=== PATIENT | male | born 1995 | race Caucasian/White ===

== ENCOUNTER 2019-02-14 17:36 | Emergency (ER) | payer BC ==
[2019-02-14] MEDS ORDERED: NA CHLORIDE 0.9% 1,000 ML ONE (18:21)
[2019-02-14] MEDS ORDERED: KETOROLAC 30 MG/ML INJ ONE (18:21)
[2019-02-14 18:27] LABS: Absolute Lymphocytes (CBC) 2.1 K/uL (0.7-4.9); Basophils % 1.1 % (0-1.3); Hematocrit 48.2 % (39.6-49.0); Lymphocytes % 20.6 % (15.3-44.8); MPV 8.3 fL (7.6-11.3); RBC Red Blood Cell Count 5.53 M/uL (4.33-5.43)
[2019-02-14 18:43] LABS: ALT/SGPT 62 U/L (12-78); AST/SGOT 29 U/L (15-37); Albumin 4.4 g/dL (3.4-5.0); Alkaline Phosphatase 93 U/L (45-117); BUN Blood Urea Nitrogen 11 mg/dL (7-18); Bicarbonate 29 mmol/L (21-32); Bilirubin Direct 0.2 mg/dL (0-0.2); Glucose Level 82 mg/dL (74-106); Lipase 155 U/L (73-393); Potassium 3.5 mmol/L (3.5-5.1); Protein, Total 7.9 g/dL (6.4-8.2); Sodium Level 141 mmol/L (136-145)
--- NOTE | 2019-02-14 18:47 | RAD REPORT ---
EXAM DESCRIPTION: CT - Stone Protocol - 02/14/2019 6:36 pm CLINICAL HISTORY: Abdominal pain. COMPARISON: 2018 TECHNIQUE: Computed axial tomography of the abdomen pelvis was obtained without oral or IV contrast. Lack of IV and oral contrast limits evaluation of solid organs, bowel, and vessels. Coronal reformat johana images were obtained and reviewed. All CT scans are performed using dose optimization technique as appropriate and may include automated exposure control or mA/KV adjustment according to patient size. FINDINGS: A renal calculus is not seen. An ureteral calculus is not noted. A bladder calculus is not present. The liver, spleen, pancreas and adrenals appear grossly normal There is no evidence of diverticulitis. The appendix appears normal Cholecystectomy A small umbilical hernia IMPRESSION: Negative for a genitourinary calculus
[2019-02-14 19:01] LABS: Urine Blood NEGATIVE (NEG); Urine Glucose NEGATIVE (NEG); Urine Protein NEGATIVE (NEG); Urine Specific Gravity <1.005 (1.005-1.030); Urine pH 5.5 (5.0-7.0)
--- NOTE | 2019-02-14 19:50 | ER ---
Nurse's Notes [facility] Name: Almas Vásquez Age: 23 yrs Sex: Male : 1995 Arrival Date: 02/14/2019 Time: 17:39 Bed 26 Private MD: Diagnosis: Abdominal and pelvic pain Presentation: 02/14 17:47 Presenting complaint: Patient states: i think i have a kidney stone, i have had them tw2 before, this time it started the weekend after thanksgi, then it went down, then this past 3 or 4 days i have felt a lot of pressure and buildup in my back, i am afraid some blockage. i have been nauseous today, not sure about fever. Transition of care: patient was not received from another setting of care. Onset of symptoms was February 14, 2019. Risk Assessment: Do you want to hurt yourself or someone else? Patient reports no desire to harm self or others. Initial Sepsis Screen: Does the patient meet any 2 criteria? No. Patient's initial sepsis screen is negative. Does the patient have a suspected source of infection? No. Patient's initial sepsis screen is negative. Care prior to arrival: None. 17:47 Method Of Arrival: Ambulatory tw2 17:47 Acuity: WENDIE 3 tw2 Triage Assessment: 17:48 General: Appears in no apparent distress. Behavior is calm, cooperative, appropriate tw2 for age. Pain: Complains of pain in right mid back and right low back. GI: Reports. : Reports burning with urination. Musculoskeletal: Range of motion: intact in all extremities. Historical: - Allergies: 17:50 No Known Allergies; tw2 - Home Meds: 17:50 None [Active]; tw2 - PMHx: 17:50 Kidney stones; tw2 - PSHx: 17:50 Lithotripsy; tw2 - Immunization history:: Adult Immunizations. - Social history:: Smoking status: . - Ebola Screening: : Patient denies travel to an Ebola-affected area in the 21 days before illness onset. Screenin:00 Abuse screen: Denies threats or abuse. Nutritional screening: No deficits noted. tr5 Tuberculosis screening: No symptoms or risk factors identified. Fall Risk None identified. Assessment: 19:00 General: Appears uncomfortable, Behavior is calm, cooperative, appropriate for age. tr5 Pain: Complains of pain in back. Neuro: Level of Consciousness is awake, alert, obeys commands. Cardiovascular: Heart tones present Capillary refill < 3 seconds Pulses are all present. Respiratory: Airway is patent Respiratory effort is even, unlabored, Respiratory pattern is regular, symmetrical. GI: No signs and/or symptoms were reported involving the gastrointestinal system. : Reports pain in lower back. EENT: No signs and/or symptoms were reported regarding the EENT system. Derm: No signs and/or symptoms reported regarding the dermatologic system. Musculoskeletal: No signs and/or symptoms reported regarding the musculoskeletal system. Vital Signs: 17:49 BP 161 / 109; Pulse 85; Resp 18; Temp 97.8(TE); Pulse Ox 100% on R/A; Weight 111.13 kg tw2 (R); Height 6 ft. 1 in. (185.42 cm) (R); Pain 5/10; 17:49 Body Mass Index 32.32 (111.13 kg, 185.42 cm) tw2 ED Course: 17:39 Patient arrived in ED. mr 17:47 Chad Arzate FNP-C [facility]. la1 17:47 Sergio Cobian MD is Attending Physician. la1 17:48 Triage completed. tw2 17:48 Arm band placed on. tw2 18:11 Fermin Vernon, RN is Primary Nurse. tr5 18:17 Initial lab(s) drawn, by me, sent to lab. Inserted saline lock: 20 gauge in right lt1 antecubital area, using aseptic technique. 18:38 CT Stone Protocol In Process Unspecified. EDMS 19:00 Bed in low position. Call light in reach. Side rails up X 1. tr5 19:50 Ray Fleming MD is Referral Physician. la1 20:15 No provider procedures requiring assistance completed. Patient did not have IV access tr5 during this emergency room visit. Administered Medications: 18:43 Drug: Ketorolac 15 mg Route: IVP; Site: right antecubital; tr5 19:35 Follow up: Response: Pain is decreased tr5 18:44 Drug: NS 0.9% 1000 ml Route: IV; Rate: 1000 ml; Site: right antecubital; tr5 Outcome: 19:50 Discharge ordered by . la1 20:15 Discharged to home ambulatory. tr5 20:15 Condition: stable 20:15 Discharge instructions given to patient, Instructed on discharge instructions, follow up and referral plans. Demonstrated understanding of instructions, follow-up care. 20:17 Patient left the ED. tr5 Signatures: Dispatcher [employer] EDWAR Ashlyn Santos, Chad, SUPERVISOR CYTOLOGY-C SUPERVISOR CYTOLOGY-Cla1 Leila Coates RN RN tw2 Leighann Whalen [facility] Fermin Vernon RN RN tr5
--- NOTE | 2019-02-14 19:51 | EDPHYS ---
Physician Documentation [facility] Name: Almas Vásquez Age: 23 yrs Sex: Male : 1995 Arrival Date: 02/14/2019 Time: 17:39 Bed 26 Private MD: ED Physician Sergio Cobian HPI: 02/14 19:45 This 23 yrs old Male presents to ER via Ambulatory with complaints of Back la1 Pain, Nausea, Urinary Problem. 19:45 The patient presents with abd pain, flank pain on right side. Onset: The la1 symptoms/episode began/occurred 2 week(s) ago. Modifying factors: The symptoms are alleviated by nothing, the symptoms are aggravated by nothing. Associated signs and symptoms: Pertinent negatives: dysuria, fever, hematuria, nausea, vomiting. Severity of symptoms: At their worst the symptoms were moderate, in the emergency department the symptoms have improved. The patient has experienced similar episodes in the past. Pt reports hx of multiple kidney stones, states he feels like he has one again, feels pressure and pain in the right flank area, denies fever or chills. Historical: - Allergies: 17:50 No Known Allergies; tw2 - Home Meds: 17:50 None [Active]; tw2 - PMHx: 17:50 Kidney stones; tw2 - PSHx: 17:50 Lithotripsy; tw2 - Immunization history:: Adult Immunizations. - Social history:: Smoking status: . - Ebola Screening: : Patient denies travel to an Ebola-affected area in the 21 days before illness onset. ROS: 19:46 Constitutional: Negative for fever, chills, and weight loss, Eyes: Negative for injury, la1 pain, redness, and discharge, ENT: Negative for injury, pain, and discharge, Neck: Negative for injury, pain, and swelling, Cardiovascular: Negative for chest pain, palpitations, and edema, Respiratory: Negative for shortness of breath, cough, wheezing, and pleuritic chest pain, Abdomen/GI: + for right abd.flank pain Back: Negative for injury and pain, : Negative for injury, bleeding, discharge, and swelling, MS/Extremity: Negative for injury and deformity. Exam: 19:47 Constitutional: This is a well developed, well nourished patient who is awake, alert, la1 and in no acute distress. Head/Face: Normocephalic, atraumatic. Eyes: Pupils equal round and reactive to light, extra-ocular motions intact. Periorbital areas with no swelling, redness, or edema. Neck: No Meningismus. Chest/axilla: Normal chest wall appearance and motion. Nontender with no deformity. No lesions are appreciated. Cardiovascular: Regular rate and rhythm with a normal S1 and S2. No gallops, murmurs, or rubs. Normal PMI, no JVD. No pulse deficits. Respiratory: Lungs have equal breath sounds bilaterally, clear to auscultation No rales, rhonchi or wheezes noted. No increased work of breathing, no retractions or nasal flaring. 19:47 Abdomen/GI: Inspection: abdomen appears normal, Bowel sounds: normal, in all quadrants, Palpation: abdomen is soft and non-tender, in all quadrants, Indicators: McBurney's point is not tender, Craig's sign is negative, Rovsing's sign is negative, Obturator sign is negative, Psoas sign is negative. 19:47 Back: pain, that is mild, ROM is normal, CVA tenderness, is absent. Vital Signs: 17:49 BP 161 / 109; Pulse 85; Resp 18; Temp 97.8(TE); Pulse Ox 100% on R/A; Weight 111.13 kg tw2 (R); Height 6 ft. 1 in. (185.42 cm) (R); Pain 5/10; 17:49 Body Mass Index 32.32 (111.13 kg, 185.42 cm) tw2 MDM: 17:55 Patient medically screened. la1 19:48 Data reviewed: vital signs, nurses notes, lab test result(s), radiologic studies, I la1 have discussed the patient's presentation/case with the attending Emergency Department Physician; and as a result, I will discharge patient. Data interpreted: Pulse oximetry: on room air is 100 %. Interpretation: normal. Counseling: I had a detailed discussion with the patient and/or guardian regarding: the historical points, exam findings, and any diagnostic results supporting the discharge/admit diagnosis, the presence of at least one elevated blood pressure reading (>120/80) during this emergency department visit, lab results, radiology results, the need for outpatient follow up, a family practitioner, a urologist, to return to the emergency department if symptoms worsen or persist or if there are any questions or concerns that arise at home. ED course: Pt tolerating PO, pain improved with toradol, no fevers, able to urinate without difficulty. 02/14 18:05 Order name: Basic Metabolic Panel; Complete Time: 19:11 la1 02/14 18:05 Order name: CBC with Diff; Complete Time: 19:11 la1 02/14 18:05 Order name: Creatinine for Radiology; Complete Time: 19:11 la1 02/14 18:05 Order name: Hepatic Function; Complete Time: 19:11 la1 02/14 18:05 Order name: Lipase; Complete Time: 19:11 la1 02/14 18:40 Order name: Urine Dipstick--Ancillary (enter results); Complete Time: 19:11 ar5 02/14 18:05 Order name: IV Saline Lock; Complete Time: 18:18 la1 02/14 18:05 Order name: Labs collected and sent; Complete Time: 18:18 la1 02/14 18:05 Order name: CT Stone Protocol; Complete Time: 19:11 la1 Administered Medications: 18:43 Drug: Ketorolac 15 mg Route: IVP; Site: right antecubital; tr5 19:35 Follow up: Response: Pain is decreased tr5 18:44 Drug: NS 0.9% 1000 ml Route: IV; Rate: 1000 ml; Site: right antecubital; tr5 Disposition: 02/15 06:42 Co-signature as Attending Physician, Sergio Cobian MD I agree with the assessment and kdr plan of care. Disposition: 02/14/19 19:50 Discharged to Home. Impression: Abdominal and pelvic pain. - Condition is Stable. - Discharge Instructions: Kidney Stones, Kidney Stones, [id number], Abdominal Pain, Adult, [id number], Dietary Guidelines to Help Prevent Kidney Stones. - Medication Reconciliation Form, Thank You Letter form. - Follow up: Private Physician; When: 2 - 3 days; Reason: Recheck today's complaints, Re-evaluation by your physician. Follow up: Ray Fleming MD; When: As needed. - Problem is new. - Symptoms have improved. Signatures: Dispatcher [employer] EDCA Sergio Cobian MD MD kdr Attema, Lee, PATTERN LAYOUT WORKER-C PATTERN LAYOUT WORKER-Cla1 Leila Coates RN RN tw2 Fermin Vernon, RN RN tr5 Corrections: (The following items were deleted from the chart) 02/14 20:17 19:50 02/14/2019 19:50 Discharged to Home. Impression: Abdominal and pelvic pain. tr5 Condition is Stable. Forms are Medication Reconciliation Form, Thank You Letter, Antibiotic Education, Prescription Opioid Use. Follow up: Private Physician; When: 2 - 3 days; Reason: Recheck today's complaints, Re-evaluation by your physician. Follow up: Ray Fleming; When: As needed. Problem is new. Symptoms have improved. la1
[2019-02-14 20:23] VITALS: BP 161/109; TEMP 97.8; O2SAT 100
== END 2019-02-14 20:17 | disposition home or self-care (01) ==
LOC: ER 17:36
DX: R10.9 Unspecified abdominal pain (principal); R10.2 Pelvic and perineal pain
CPT/HCPCS: 85025; 80048; 36415; 80076; 81003; 83690; 76377; 74176; 96374; 99284; J7030

== ENCOUNTER 2019-07-03 17:10 | Emergency (ER) | payer BC, OTHER ==
[2019-07-03] MEDS ORDERED: ACETAMINOPHEN 500 MG TAB ONE (17:34)
[2019-07-03] MEDS ORDERED: PROMETHAZINE INJ 25 MG/ML AMP ONE (17:34)
--- NOTE | 2019-07-03 18:31 | ER ---
Nurse's Notes [facility] Name: Almas Vásquez Age: 24 yrs Sex: Male : 1995 Arrival Date: 07/03/2019 Time: 17:11 Bed 13 Private MD: Presley Masters B Diagnosis: Fever, unspecified;Shortness of breath Presentation: 07/02 17:19 Chief complaint: headache x 5 days, nausea and cough x 2 days, worsening SOB since last hb night. Coronavirus screen: Proceed with normal triage. Patient reports a cough. Patient reports shortness of breath or difficulty breathing. Patient reports a measured and/or subjective temperature greater than 100.4F. Patient denies travel on a cruise ship or to a country the [facility] currently lists as an affected area. Patient denies contact with known and/or suspected case of COVID-19. Ebola Screen: No symptoms or risks identified at this time. Initial Sepsis Screen: Does the patient meet any 2 criteria? HR > 90 bpm. No. Patient's initial sepsis screen is negative. Does the patient have a suspected source of infection? No. Patient's initial sepsis screen is negative. Risk Assessment: Do you want to hurt yourself or someone else? Patient reports no desire to harm self or others. Onset of symptoms was June 28, 2019. 17:19 Method Of Arrival: Ambulatory 17:19 Acuity: WENDIE 3 hb Triage Assessment: 18:01 General: Appears in no apparent distress. uncomfortable, Behavior is calm, cooperative, vc appropriate for age. Respiratory: Reports shortness of breath at rest cough that is dry, Onset: The symptoms/episode began/occurred yesterday, the patient has moderate shortness of breath. Historical: - Allergies: 17:21 No Known Allergies; hb - Home Meds: 17:21 None [Active]; hb - PMHx: 17:21 Kidney stones; hb - PSHx: 17:21 Lithotripsy; Cholecystectomy; hb - Immunization history:: Adult Immunizations up to date. - Social history:: Smoking status: Patient reports the use of cigarette tobacco products, denies chronic smoking, but will smoke occasionally. Screenin:59 Abuse screen: Denies threats or abuse. Nutritional screening: No deficits noted. vc Tuberculosis screening: No symptoms or risk factors identified. Fall Risk None identified. Assessment: 17:59 Pain:. Cardiovascular: Rhythm is regular. Respiratory: Airway is patent Respiratory vc effort is even, labored, Respiratory pattern is symmetrical, Breath sounds are clear bilaterally. 18:00 General: Appears in no apparent distress. uncomfortable, Behavior is calm, cooperative, vc appropriate for age. Neuro: Level of Consciousness is awake, alert, obeys commands, Oriented to person, place, time, situation. GI: No signs and/or symptoms were reported involving the gastrointestinal system. GI: Reports nausea. : No signs and/or symptoms were reported regarding the genitourinary system. Derm: No signs and/or symptoms reported regarding the dermatologic system. Musculoskeletal: No signs and/or symptoms reported regarding the musculoskeletal system. 07/03 13:15 Reassessment: Spoke with Carlota at [facility], issued PUI# [id number], outside lab notified.hb Vital Signs: 07/02 17:19 BP 148 / 86; Pulse 105; Resp 20; Temp 100.4; Pulse Ox 100% on R/A; Weight 142.88 kg; hb Height 6 ft. 3 in. (190.50 cm); Pain 4/10; 18:30 BP 134 / 79; Pulse 83; Resp 20; Pulse Ox 98% on R/A; vc 18:49 Temp 99.7(O); vc 17:19 Body Mass Index 39.37 (142.88 kg, 190.50 cm) hb ED Course: 17:11 Patient arrived in ED. am2 17:11 Presley Masters MD is Private Physician. am2 17:16 Ligia Dyson FNP-C is [facility]. snw 17:16 Sergio Cobian MD is Attending Physician. snw 17:17 Ericka Man, CLARIBEL is Primary Nurse. vc 17:20 Patient maintains SpO2 saturation greater than 95% on room air. jp3 17:21 Triage completed. hb 17:21 Arm band placed on. hb 17:21 Safety checks: Items removed: Other: Patient placed on Droplet precaution Door jp3 open/sign placed on door: Other: Droplet precaution placed on Door. Bed in low position. Call light in reach. Verbal reassurance given. Pulse ox on. NIBP on. 17:40 Flu and/or RSV swab sent to lab. Strep swab sent to lab. COVID-19 Swab obtained. jp3 18:01 Chest Single View XRAY In Process Unspecified. EDMS 18:04 Patient has correct armband on for positive identification. Bed in low position. Call vc light in reach. Side rails up X 1. Pulse ox on. NIBP on. 18:40 No provider procedures requiring assistance completed. Patient did not have IV access vc during this emergency room visit. Administered Medications: 17:48 Drug: Phenergan 25 mg Route: IM; Site: right deltoid; vc 17:49 Drug: Tylenol 1000 mg Route: PO; vc Outcome: 18:31 Discharge ordered by . nery 18:50 Patient left the ED. vc 19:10 Discharged to home ambulatory. vc 19:10 Condition: good 19:10 Discharge instructions given to patient, Instructed on discharge instructions, follow up and referral plans. medication usage, Self quarantine self until receiving results for COVID-19 test. Demonstrated understanding of instructions, follow-up care, medications, Prescriptions given X 1. Signatures: Dispatcher [employer] EDDC Ligia Dyson, ALUM PLANT OPERATOR-C ALUM PLANT OPERATOR-Csnw Carlota De La Garza, RN RN Melita Chappell am2 Demarcus Healy jp3 Ericka Man RN RN vc
--- NOTE | 2019-07-03 18:32 | EDPHYS ---
Physician Documentation [facility] Name: Almas Vásquez Age: 24 yrs Sex: Male : 1995 Arrival Date: 07/03/2019 Time: 17:11 Bed 13 Private MD: Presley Masters B ED Physician Sergio Cobian HPI: 07/02 17:27 This 24 yrs old Male presents to ER via Ambulatory with complaints of snw Shortness Of Breath. 17:27 The patient has shortness of breath at rest. Onset: The symptoms/episode began/occurred snw gradually, 5 day(s) ago. Duration: The symptoms are continuous. Associated signs and symptoms: The patient has no apparent associated signs or symptoms. Severity of symptoms: in the emergency department the symptoms are unchanged. The patient has not experienced similar symptoms in the past. The patient has not recently seen a physician. pt states he has been nauseated with a headache, had chills last pm. Pt states his headache has improved but is increasingly short of breath. Historical: - Allergies: 17:21 No Known Allergies; hb - Home Meds: 17:21 None [Active]; hb - PMHx: 17:21 Kidney stones; hb - PSHx: 17:21 Lithotripsy; Cholecystectomy; hb - Immunization history:: Adult Immunizations up to date. - Social history:: Smoking status: Patient reports the use of cigarette tobacco products, denies chronic smoking, but will smoke occasionally. ROS: 17:26 Constitutional: Negative for fever, chills, and weight loss. snw 17:26 Eyes: Negative for injury, pain, redness, and discharge, ENT: Negative for injury, pain, and discharge, Neck: Negative for injury, pain, and swelling, Cardiovascular: Negative for chest pain, palpitations, and edema. 17:26 Abdomen/GI: Negative for abdominal pain, vomiting, diarrhea, and constipation, + nausea Back: Negative for injury and pain, : Negative for injury, bleeding, discharge, and swelling, MS/Extremity: Negative for injury and deformity, Skin: Negative for injury, rash, and discoloration. 17:26 Constitutional: Positive for body aches, chills, fever, malaise. 17:26 Respiratory: Positive for shortness of breath, at rest. 17:26 Neuro: Positive for headache. Exam: 17:24 Head/Face: Normocephalic, atraumatic. Eyes: Pupils equal round and reactive to light, snw extra-ocular motions intact. Lids and lashes normal. Conjunctiva and sclera are non-icteric and not injected. Cornea within normal limits. Periorbital areas with no swelling, redness, or edema. ENT: Nares patent. No nasal discharge, no septal abnormalities noted. Tympanic membranes are normal and external auditory canals are clear. Oropharynx with no redness, swelling, or masses, exudates, or evidence of obstruction, uvula midline. Mucous membranes moist. Neck: Trachea midline, no thyromegaly or masses palpated, and no cervical lymphadenopathy. Supple, full range of motion without nuchal rigidity, or vertebral point tenderness. No Meningismus. Chest/axilla: Normal chest wall appearance and motion. Nontender with no deformity. No lesions are appreciated. 17:24 Abdomen/GI: Soft, non-tender, with normal bowel sounds. No distension or tympany. No guarding or rebound. No evidence of tenderness throughout. Back: No spinal tenderness. No costovertebral tenderness. Full range of motion. 17:24 MS/ Extremity: Pulses equal, no cyanosis. Neurovascular intact. Full, normal range of motion. Neuro: Awake and alert, GCS 15, oriented to person, place, time, and situation. Cranial nerves II-XII grossly intact. Motor strength 5/5 in all extremities. Sensory grossly intact. Cerebellar exam normal. Normal gait. Psych: Awake, alert, with orientation to person, place and time. Behavior, mood, and affect are within normal limits. 17:24 Constitutional: The patient appears alert, awake, anxious, diaphoretic, uncomfortable. 17:24 Cardiovascular: Rate: tachycardic, Rhythm: regular, Pulses: no pulse deficits are appreciated, Heart sounds: normal. 17:24 Respiratory: the patient does not display signs of respiratory distress, Respirations: shallow respirations, tachypnea, Breath sounds: are clear throughout. 17:24 Skin: Appearance: Color: normal in color, diaphoresis is noted. Vital Signs: 17:19 BP 148 / 86; Pulse 105; Resp 20; Temp 100.4; Pulse Ox 100% on R/A; Weight 142.88 kg; hb Height 6 ft. 3 in. (190.50 cm); Pain 4/10; 18:30 BP 134 / 79; Pulse 83; Resp 20; Pulse Ox 98% on R/A; vc 18:49 Temp 99.7(O); vc 17:19 Body Mass Index 39.37 (142.88 kg, 190.50 cm) hb MDM: 17:16 Patient medically screened. snw 18:34 Data reviewed: vital signs, nurses notes, lab test result(s), radiologic studies. Data snw interpreted: Pulse oximetry: on room air is 100 %. Interpretation: normal. Counseling: I had a detailed discussion with the patient and/or guardian regarding: the historical points, exam findings, and any diagnostic results supporting the discharge/admit diagnosis, lab results, radiology results, the need for outpatient follow up, for definitive care, to return to the emergency department if symptoms worsen or persist or if there are any questions or concerns that arise at home. 07/02 17:19 Order name: COVID-19 snw 07/02 17:19 Order name: Flu; Complete Time: 18:29 snw 07/02 17:19 Order name: Strep; Complete Time: 18:29 snw 07/02 17:24 Order name: Chest Single View XRAY snw 07/02 18:27 Order name: Throat Culture EDMS 07/02 17:19 Order name: Droplet/Contact Precautions; Complete Time: 17:25 snw 07/02 17:19 Order name: Labs collected and sent; Complete Time: 17:49 snw 07/02 17:19 Order name: O2 Per Protocol; Complete Time: 17:50 snw Administered Medications: 17:48 Drug: Phenergan 25 mg Route: IM; Site: right deltoid; vc 17:49 Drug: Tylenol 1000 mg Route: PO; vc Disposition: 07/03/19 18:31 Discharged to Home. Impression: Fever, unspecified, Shortness of breath. - Condition is Stable. - Discharge Instructions: Shortness of Breath, [id number], Fever, Adult, Oggi-my-Cmgb, Rehydration, Adult. - Prescriptions for promethazine 25 mg Oral Tablet - take 1 tablet by ORAL route every 6 hours As needed; 20 tablet. - Work release form, Medication Reconciliation Form, Thank You Letter, Antibiotic Education, Prescription Opioid Use form. - Follow up: Private Physician; When: 1 week; Reason: Recheck today's complaints, Continuance of care, Re-evaluation by your physician. Follow up: Emergency Department; When: As needed; Reason: Worsening of condition. - Problem is new. - Symptoms are unchanged. - Notes: Please self quarantine until results of CoVid 19 test results. Rest, avoid Motrin. Please return to ER immediately for worsening symptoms. Addendum: 07/05/2019 11:35 Co-signature as Attending Physician, Sergio Cobian MD I agree with the assessment and k dr plan of care. Signatures: Dispatcher [employer] EDOK Sergio Cobian MD MD [facility] Ligia Dyson, MICROBIOLOGY LAB MANAGER-C MICROBIOLOGY LAB MANAGER-Csnw Carlota De La Garza RN RN hb Ericka Man RN RN vc Corrections: (The following items were deleted from the chart) 07/02 18:50 18:31 07/03/2019 18:31 Discharged to Home. Impression: Fever, unspecified; Shortness of vc breath. Condition is Stable. Forms are Medication Reconciliation Form, Thank You Letter, Antibiotic Education, Prescription Opioid Use. Follow up: Private Physician; When: 1 week; Reason: Recheck today's complaints, Continuance of care, Re-evaluation by your physician. Follow up: Emergency Department; When: As needed; Reason: Worsening of condition. Problem is new. Symptoms are unchanged. snw
--- NOTE | 2019-07-03 18:50 | RAD REPORT ---
EXAM DESCRIPTION: RAD - Chest Single View - 07/03/2019 6:01 pm CLINICAL HISTORY: SOB COMPARISON: None available TECHNIQUE: AP portable chest image was obtained 07/03/2019 6:01 pm . FINDINGS: Lungs are clear. Heart and vasculature are normal. No measurable pleural effusion and no p neumothorax. No acute bony abnormality seen. No acute aortic findings suspected. IMPRESSION: No acute cardiopulmonary process.
[2019-07-03 18:59] VITALS: BP 134/79; TEMP 100.4; O2SAT 98
== END 2019-07-03 18:50 | disposition home or self-care (01) ==
LOC: ER 17:10
DX: R06.02 Shortness of breath (principal); R50.9 Fever, unspecified; F17.210 Nicotine dependence, cigarettes, uncomplicated
CPT/HCPCS: 87070; 87081; 87804 ×2; 71045; 96372; 99284; U0001; J2550

== ENCOUNTER 2019-07-04 15:38 | Inpatient (IN) | payer BC, OTHER ==
[2019-07-04] MEDS ORDERED: NA CHLORIDE 0.9% 1,000 ML ONE ×2 (17:02→20:22)
[2019-07-04] MEDS ORDERED: KETOROLAC 30 MG/ML INJ ONE (17:02)
[2019-07-04 18:17] LABS: Albumin 3.7 g/dL (3.4-5.0); Bilirubin Direct 0.6 mg/dL (0-0.2); Bilirubin Total 2.1 mg/dL (0.2-1.0); Potassium 3.5 mmol/L (3.5-5.1)
[2019-07-04 18:49] LABS: Absolute Lymphocytes (CBC) 0.7 K/uL (0.7-4.9); Basophils % 0.2 % (0-1.3); Lymphocytes % 3.8 % (15.3-44.8); MPV 8.4 fL (7.6-11.3); RBC Red Blood Cell Count 4.77 M/uL (4.33-5.43)
--- NOTE | 2019-07-04 19:32 | RAD REPORT ---
EXAM DESCRIPTION: CT - Stone Protocol - 07/04/2019 7:24 pm CLINICAL HISTORY: Flank pain. ABD PAIN COMPARISON: Stone Protocol dated 02/14/2019; Chest Single View dated 07/03/2019 TECHNIQUE: Axial images were obtained without oral or IV contrast. Lack of contrast limits solid org an and vascular assessment. The [id number] spans the entirety of the system partially obscuring uppermost abdomen and lung bases. Coronal reformatted images were obtained and reviewed. All CT scans are performed using dose optimization technique as appropriate and may include automated exposure control or mA/KV adjustment according to patient size. FINDINGS: Subtle nonspecific ground-glass opacity noted in both lung bases. Imaged portions of the liver and spleen show no suspicious findings on non-contrast imaging. The panc reas and adrenal glands are normal. No pathologic lymphadenopathy in the abdomen or pelvis. No urinary tract stones or obstructive uropathy. No bowel obstruction, free air, free fluid or abscess. Normal appendix noted. No significant bony abnormality. IMPRESSION: No urinary tract stones or obstructive uropathy.
[2019-07-04] MEDS ORDERED: NA CHLORIDE 0.9% 250 ML ONE (20:22)
[2019-07-04] MEDS ORDERED: AZITHROMYCIN 500 MG INJ IVPB ONE (20:22)
[2019-07-04] MEDS ORDERED: PROMETHAZINE INJ 25 MG/ML AMP ONE (20:51)
[2019-07-04] MEDS ORDERED: MORPHINE 4 MG/ML SYR ONE (20:52)
[2019-07-04] MEDS ORDERED: ACETAMINOPHEN 500 MG TAB ONE (20:53)
--- NOTE | 2019-07-04 21:17 | ER ---
Nurse's Notes [facility] Name: Almas Vásquez Age: 24 yrs Sex: Male : 1995 Arrival Date: 07/04/2019 Time: 15:42 Bed 13 Private MD: Diagnosis: Pneumonia, unspecified organism;Dyspnea, unspecified Presentation: 07/03 15:57 Chief complaint: Patient states: Awaiting covid result from yesterdays visit. States ll1 the chest pain and SOB has worsened overnight. Coronavirus screen: Surgical mask placed on patient. Patient moved to private room, placed in contact and droplet isolation with eye protection until further assessment. Patient reports a cough. Patient reports shortness of breath or difficulty breathing. Patient reports a measured and/or subjective temperature greater than 100.4F. Patient denies travel on a cruise ship or to a country the [facility] [place] currently lists as an affected area. Patient denies contact with known and/or suspected case of COVID-19. covid test result pending. Ebola Screen: Patient denies travel to an Ebola-affected area in the 21 days before illness onset. Initial Sepsis Screen: Does the patient meet any 2 criteria? HR > 90 bpm. Does the patient have a suspected source of infection? No. Patient's initial sepsis screen is negative. Risk Assessment: Do you want to hurt yourself or someone else? Patient reports no desire to harm self or others. Onset of symptoms is unknown. 15:57 Method Of Arrival: Ambulatory ll1 15:57 Acuity: WENDIE 3 ll1 Triage Assessment: 17:30 General: Appears in no apparent distress. uncomfortable, ill, obese, Behavior is vc cooperative, anxious. Pain: Complains of pain in chest. GI: Reports nausea. Historical: - Allergies: 15:59 No Known Allergies; ll1 - PMHx: 15:59 Kidney stones; ll1 - PSHx: 15:59 Cholecystectomy; Lithotripsy; ll1 - Immunization history:: Adult Immunizations up to date. - Social history:: Smoking status: Patient reports the use of cigarette tobacco products, denies chronic smoking, but will smoke occasionally, Patient uses alcohol, only on a social basis. Patient/guardian denies using street drugs. Screenin:29 Abuse screen: Denies threats or abuse. Nutritional screening: No deficits noted. vc Tuberculosis screening: No symptoms or risk factors identified. Fall Risk None identified. Assessment: 17:30 GI: Abdomen is round non-distended. vc 17:32 General: Appears in no apparent distress. uncomfortable, ill, Behavior is cooperative, vc anxious. Pain: Complains of pain in chest. Neuro: Level of Consciousness is awake, alert, obeys commands, Oriented to person, place, time, situation, Appropriate for age. Cardiovascular: Capillary refill < 3 seconds Patient's skin is warm and dry. Respiratory: Airway is patent Respiratory effort is even, unlabored, Respiratory pattern is regular, symmetrical. : No signs and/or symptoms were reported regarding the genitourinary system. EENT: No deficits noted. Derm: No deficits noted. Musculoskeletal: Circulation, motion, and sensation intact. Range of motion: intact in all extremities. 18:30 Reassessment: Patient appears in no apparent distress at this time. Patient and/or vc family updated on plan of care and expected duration. Pain level reassessed. Patient is alert, oriented x 3, equal unlabored respirations, skin warm/dry/pink. Patient states symptoms have not improved. 19:30 Reassessment: Patient appears in no apparent distress at this time. No changes from vc previously documented assessment. 20:30 Reassessment: Patient appears in no apparent distress at this time. Patient and/or vc family updated on plan of care and expected duration. Pain level reassessed. Patient laying with eyes closed resting comfortably. Patient states symptoms have not improved. 21:24 Reassessment: Patient appears in no apparent distress at this time. Patient and/or vc family updated on plan of care and expected duration. Pain level reassessed. Patient is alert, oriented x 3, equal unlabored respirations, skin warm/dry/pink. Hospitalist at bedside speaking with patient. Patient states symptoms have not improved. 22:30 Reassessment: Patient appears in no apparent distress at this time. Patient and/or vc family updated on plan of care and expected duration. Pain level reassessed. Patient is alert, oriented x 3, equal unlabored respirations, skin warm/dry/pink. 23:30 Reassessment: Patient appears in no apparent distress at this time. Patient and/or vc family updated on plan of care and expected duration. Pain level reassessed. Patient is alert, oriented x 3, equal unlabored respirations, skin warm/dry/pink. Vital Signs: 15:57 BP 149 / 111; Pulse 106; Resp 18; Temp 99.3; Pulse Ox 98% on R/A; Pain 4/10; ll1 17:33 BP 141 / 90; Pulse 94; Resp 18; Pulse Ox 99% on R/A; vc 18:00 BP 150 / 84; Pulse 93; Resp 19; Pulse Ox 100% on R/A; vc 19:00 BP 140 / 71; Pulse 104; Resp 19; Pulse Ox 96% on R/A; vc 20:00 BP 135 / 60; Pulse 90; Resp 19; Pulse Ox 98% on R/A; vc 21:00 BP 134 / 62; Pulse 92; Resp 18; Temp 100.2; Pulse Ox 97% on R/A; vc 22:00 BP 122 / 77; Pulse 96; Resp 17; Pulse Ox 97% ; vc 23:00 BP 120 / 73; Pulse 92; Resp 18; Temp 99.2; Pulse Ox 97% on R/A; vc 07/04 00:00 BP 116 / 70; Pulse 80; Resp 19; Pulse Ox 97% on R/A; vc ED Course: 07/03 15:42 Patient arrived in ED. mr 15:54 Al Covarrubias MD is Attending Physician. luz 15:54 Ericka Man, CLARIBEL is Primary Nurse. vc 15:56 Ligia Dyson FNP-C is [facility]. snw 15:58 Triage completed. ll1 15:59 Arm band placed on Patient placed in an exam room, on a stretcher. ll1 17:00 Inserted saline lock: 20 gauge in right antecubital area, using aseptic technique. vc Blood collected. 17:31 Patient has correct armband on for positive identification. Bed in low position. Call vc light in reach. Side rails up X 1. Pulse ox on. NIBP on. 19:25 CT Stone Protocol In Process Unspecified. EDMS 21:16 Filippo Gottlieb is Hospitalizing Provider. snw 07/04 00:15 Patient admitted, IV remains in place. vc 00:35 No provider procedures requiring assistance completed. vc Administered Medications: 07/03 17:28 Drug: TORadol - Ketorolac 15 mg Route: IVP; Site: right antecubital; vc 18:28 Follow up: Response: No adverse reaction; Pain is decreased vc 17:29 Drug: NS 0.9% 1000 ml Route: IV; Rate: 1 bolus; Site: right antecubital; vc 18:29 Follow up: IV Intake: 1000ml vc 18:49 Follow up: IV Status: Completed infusion; IV Intake: 1000ml vc 21:04 Drug: morphine 4 mg Route: IVP; Site: right antecubital; vc 07/04 00:35 Follow up: Response: No adverse reaction; Pain is decreased vc 07/03 21:04 Drug: Phenergan 12.5 mg Route: IVP; Site: right antecubital; vc 07/04 00:33 Follow up: Response: No adverse reaction; Nausea is decreased vc 07/03 21:05 Drug: Zithromax 500 mg Route: IVPB; Infused Over: 1 hrs; Site: right antecubital; vc 22:05 Follow up: IV Status: Completed infusion; IV Intake: 250ml vc 21:05 Drug: NS 0.9% 1000 ml Route: IV; Rate: 125 ml/hr; Site: right antecubital; vc 07/04 00:37 Follow up: IV Status: Infusion continued upon admission vc 07/03 21:06 Drug: Tylenol 1000 mg Route: PO; vc 07/04 00:32 Follow up: Response: No adverse reaction; Temperature is decreased vc 00:15 CANCELLED (duplicate order): Phenergan 25 mg IVP once snw Intake: 07/03 18:29 IV: 1000ml; Total: 1000ml. vc 18:49 IV: 1000ml; Total: 2000ml. vc 22:05 IV: 250ml; Total: 2250ml. vc Outcome: 21:17 Decision to Hospitalize by Provider. snw 07/04 00:41 Patient left the ED. sg 00:45 Admitted to Tele accompanied by tech, via wheelchair, room 418. vc 00:45 Instructed on the need for admit. vc 00:45 Condition: good vc Signatures: Dispatcher [employer] EDMS Manas Morales RN RN sg Anderson, Corey, MD MD cha Therrien, Shelly, MARKETING RESEARCH ANALYST-C MARKETING RESEARCH ANALYST-Csnw Ashlyn Santos mr Ericka Man RN RN vc Lewis, Lynsay, RN RN ll1 Corrections: (The following items were deleted from the chart) 00:15 07/03 21:04 Phenergan 25 mg IVP in right antecubital vc snw 07/04 01:37 01:36 Admitted to Tele accompanied by tech, via wheelchair, room 418, vc vc 01:38 01:36 Condition: good vc vc
--- NOTE | 2019-07-04 21:17 | EDPHYS ---
Physician Documentation [facility] Name: Almas Vásquez Age: 24 yrs Sex: Male : 1995 Arrival Date: 07/04/2019 Time: 15:42 Bed 13 Private MD: ED Physician Al Covarrubias HPI: 07/03 21:04 This 24 yrs old Male presents to ER via Ambulatory with complaints of snw Nausea/Vomiting, Chest Pain, Shortness Of Breath. 21:04 The patient presents to the emergency department with nausea, vomiting, chest pain and snw sob. Onset: The symptoms/episode began/occurred suddenly, 6 day(s) ago, and became worse last night. 21:05 Possible causes: unknown. The symptoms are aggravated by nothing. Associated signs and snw symptoms: Pertinent positives: abdominal pain, fever, nausea, vomiting, shortness of breath and now chest pain. Severity of symptoms: At their worst the symptoms were moderate in the emergency department the symptoms are unchanged. seen in this ED yesterday, Flu, Strep, CXR negative. CoVid 19 pending.. The patient has been recently seen by a physician: The patient has been recently seen at the [facility] Emergency Department, yesterday, for similar complaints was given a prescription for an antiemetic. s/s worsened and pt returned to ED for re-evaluation. Historical: - Allergies: 15:59 No Known Allergies; ll1 - PMHx: 15:59 Kidney stones; ll1 - PSHx: 15:59 Cholecystectomy; Lithotripsy; ll1 - Immunization history:: Adult Immunizations up to date. - Social history:: Smoking status: Patient reports the use of cigarette tobacco products, denies chronic smoking, but will smoke occasionally, Patient uses alcohol, only on a social basis. Patient/guardian denies using street drugs. ROS: 21:19 Eyes: Negative for injury, pain, redness, and discharge, ENT: Negative for injury, snw pain, and discharge, Neck: Negative for injury, pain, and swelling, Cardiovascular: Negative for palpitations and edema, +chest pain Back: Negative for injury and pain. 21:19 : Negative for injury, bleeding, discharge, and swelling, MS/Extremity: Negative for injury and deformity, Skin: Negative for injury, rash, and discoloration, Neuro: Negative for headache, weakness, numbness, tingling, and seizure, Psych: Negative for depression, anxiety, suicide ideation, homicidal ideation, and hallucinations. 21:19 Constitutional: Positive for body aches, fatigue, fever, malaise, shortness of breath, chest pain. 21:19 Respiratory: Positive for shortness of breath, at rest. 21:19 Abdomen/GI: Positive for abdominal pain, nausea and vomiting. Exam: 20:53 Head/Face: Normocephalic, atraumatic. Eyes: Pupils equal round and reactive to light, snw extra-ocular motions intact. Lids and lashes normal. Conjunctiva and sclera are non-icteric and not injected. Cornea within normal limits. Periorbital areas with no swelling, redness, or edema. ENT: Nares patent. No nasal discharge, no septal abnormalities noted. Tympanic membranes are normal and external auditory canals are clear. Oropharynx with no redness, swelling, or masses, exudates, or evidence of obstruction, uvula midline. Mucous membranes moist. Neck: Trachea midline, no thyromegaly or masses palpated, and no cervical lymphadenopathy. Supple, full range of motion without nuchal rigidity, or vertebral point tenderness. No Meningismus. Chest/axilla: Normal chest wall appearance and motion. Nontender with no deformity. No lesions are appreciated. 20:53 Abdomen/GI: Soft, non-tender, with normal bowel sounds. No distension or tympany. No guarding or rebound. No evidence of tenderness throughout. Back: No spinal tenderness. No costovertebral tenderness. Full range of motion. Skin: Warm, dry with normal turgor. Normal color with no rashes, no lesions, and no evidence of cellulitis. MS/ Extremity: Pulses equal, no cyanosis. Neurovascular intact. Full, normal range of motion. Neuro: Awake and alert, GCS 15, oriented to person, place, time, and situation. Cranial nerves II-XII grossly intact. Motor strength 5/5 in all extremities. Sensory grossly intact. Cerebellar exam normal. Normal gait. Psych: Awake, alert, with orientation to person, place and time. Behavior, mood, and affect are within normal limits. 20:53 Constitutional: The patient appears awake, well developed, anxious, restless, uncomfortable. 20:53 Cardiovascular: Rate: tachycardic, Rhythm: regular. 20:53 Respiratory: the patient does not display signs of respiratory distress, Respirations: grunting, that is mild, shallow respirations, tachypnea, Breath sounds: chest discomfort. Vital Signs: 15:57 BP 149 / 111; Pulse 106; Resp 18; Temp 99.3; Pulse Ox 98% on R/A; Pain 4/10; ll1 17:33 BP 141 / 90; Pulse 94; Resp 18; Pulse Ox 99% on R/A; vc 18:00 BP 150 / 84; Pulse 93; Resp 19; Pulse Ox 100% on R/A; vc 19:00 BP 140 / 71; Pulse 104; Resp 19; Pulse Ox 96% on R/A; vc 20:00 BP 135 / 60; Pulse 90; Resp 19; Pulse Ox 98% on R/A; vc 21:00 BP 134 / 62; Pulse 92; Resp 18; Temp 100.2; Pulse Ox 97% on R/A; vc 22:00 BP 122 / 77; Pulse 96; Resp 17; Pulse Ox 97% ; vc 23:00 BP 120 / 73; Pulse 92; Resp 18; Temp 99.2; Pulse Ox 97% on R/A; vc 05/01 00:00 BP 116 / 70; Pulse 80; Resp 19; Pulse Ox 97% on R/A; vc MDM: 07/03 15:54 Patient medically screened. luz 21:17 Data reviewed: vital signs, nurses notes. Data interpreted: Pulse oximetry: on room air snw is 98 %. Interpretation: acceptable. Counseling: I had a detailed discussion with the patient and/or guardian regarding: the historical points, exam findings, and any diagnostic results supporting the discharge/admit diagnosis, lab results, radiology results, the need for further work-up and treatment in the hospital. Response to treatment: There is no appreciated change of the patient's symptoms at this time, pain still the same, the patient continues to display shortness of breath, and as a result, I will admit patient. Physician consultation: Filippo Bull was called at 21:19, was contacted at 21:19, regarding admission, to the telemetry unit. [facility]. 07/03 15:58 Order name: Basic Metabolic Panel; Complete Time: 18:18 snw 07/03 15:58 Order name: CBC with Diff; Complete Time: 22:43 snw 07/03 15:58 Order name: Hepatic Function; Complete Time: 18:18 snw 07/03 15:58 Order name: Lipase; Complete Time: 18:18 snw 07/03 18:19 Order name: Add On-Lab snw 07/03 18:45 Order name: [place] Screen; Complete Time: 19:22 EDMS 07/03 18:55 Order name: CT Stone Protocol; Complete Time: 19:37 snw 07/03 19:14 Order name: Urine Culture snw 07/03 19:14 Order name: Urine Microscopic Only; Complete Time: 23:34 snw 07/03 22:20 Order name: Urine Dipstick--Ancillary (enter results); Complete Time: 22:43 mw2 07/03 22:37 Order name: Manual Differential; Complete Time: 22:43 EDMS 07/03 15:58 Order name: Labs collected and sent; Complete Time: 17:29 snw 07/03 19:14 Order name: Urine Dipstick-Ancillary (obtain specimen); Complete Time: 22:09 snw Administered Medications: 17:28 Drug: TORadol - Ketorolac 15 mg Route: IVP; Site: right antecubital; vc 18:28 Follow up: Response: No adverse reaction; Pain is decreased vc 17:29 Drug: NS 0.9% 1000 ml Route: IV; Rate: 1 bolus; Site: right antecubital; vc 18:29 Follow up: IV Intake: 1000ml vc 18:49 Follow up: IV Status: Completed infusion; IV Intake: 1000ml vc 21:04 Drug: morphine 4 mg Route: IVP; Site: right antecubital; vc 07/04 00:35 Follow up: Response: No adverse reaction; Pain is decreased vc 07/03 21:04 Drug: Phenergan 12.5 mg Route: IVP; Site: right antecubital; vc 07/04 00:33 Follow up: Response: No adverse reaction; Nausea is decreased vc 07/03 21:05 Drug: Zithromax 500 mg Route: IVPB; Infused Over: 1 hrs; Site: right antecubital; vc 22:05 Follow up: IV Status: Completed infusion; IV Intake: 250ml vc 21:05 Drug: NS 0.9% 1000 ml Route: IV; Rate: 125 ml/hr; Site: right antecubital; vc 07/04 00:37 Follow up: IV Status: Infusion continued upon admission vc 07/03 21:06 Drug: Tylenol 1000 mg Route: PO; vc 07/04 00:32 Follow up: Response: No adverse reaction; Temperature is decreased vc 00:15 CANCELLED (duplicate order): Phenergan 25 mg IVP once snw Disposition: 11:26 Co-signature as Attending Physician, Al Covarrubias MD I agree with the assessment and luz plan of care. Disposition: 07/04/19 21:17 Hospitalization ordered by Filippo Gottlieb for Observation. Preliminary diagnosis are Pneumonia, unspecified organism, Dyspnea, unspecified. - Bed requested for Telemetry/MedSurg (observation). - Status is Observation. sg - Condition is Stable. - Problem is an acute exacerbation. - Symptoms have worsened. Signatures: Dispatcher [employer] EDMS Manas Morales RN RN sg Anderson, Corey, MD MD cha Therrien, Shelly, INFRASTRUCTURE DIRECTOR-C INFRASTRUCTURE DIRECTOR-Csnw Diamond Abarca RN RN cg Calcote, Vanessa, RN RN vc Lewis, Lynsay, RN RN ll1 Corrections: (The following items were deleted from the chart) 07/03 21:08 21:04 Onset: The symptoms/episode began/occurred suddenly, snw snw 21:17 21:17 Hospitalization Ordered by Filippo Gottlieb for Observation. Preliminary diagnosis snw is Pneumonia, unspecified organism. Bed requested for Telemetry/MedSurg (observation). Status is Observation. Condition is Stable. Problem is an acute exacerbation. Symptoms have worsened. snw 22:35 21:17 07/04/2019 21:17 Hospitalization Ordered by Filippo Gottlieb for Observation. cg Preliminary diagnosis is Pneumonia, unspecified organism; Dyspnea, unspecified. Bed requested for Telemetry/MedSurg (observation). Status is Observation. Condition is Stable. Problem is an acute exacerbation. Symptoms have worsened. snw 07/04 00:15 07/03 20:44 Phenergan 25 mg IVP once ordered. snw snw 07/04 00:15 07/03 21:04 Phenergan 25 mg IVP once given. vc snw 07/04 00:15 00:15 Phenergan 25 mg IVP once ordered. snw snw 00:41 07/03 22:35 07/04/2019 21:17 Hospitalization Ordered by Filippo Gottlieb for Observation. sg Preliminary diagnosis is Pneumonia, unspecified organism; Dyspnea, unspecified. Bed requested for Telemetry/MedSurg (observation). Status is Observation. Condition is Stable. Problem is an acute exacerbation. Symptoms have worsened. cg
--- NOTE | 2019-07-04 22:25 | P.HP ---
Certification for Inpatient Patient admitted to: Observation With expected LOS: <2 Midnights Practitioner: I am a practitioner with admitting privileges, knowledge of patient current condition, hospital course, and medical plan of care. Services: Services provided to patient in accordance with Admission requirements found in Title 42 Section 412.3 of the Code of Federal Regulations Patient History Date of Service: 07/04/19 Reason for admission: Abdominal pain History of Present Illness: 24-year-old gentleman with a history of GERD presented to the emergency department with a complaint of abdominal pain, nausea and vomiting. This is his second visit to the ED. He was here yesterday for similar complaint and was discharged from the ED. He was screened for Covid 19. His symptoms did not get better and therefore presented to the ED again today. Blood work shows significant leukocytosis, [place] [address] abdomen and pelvis done to evaluate abdominal pain now report bilateral ground-glass opacities in the bilateral lower lobes. A fever of 100.4 was recorded in the ED. Patient meets criteria for sepsis. There is a concern for Covid infection. He is admitted for further management. Allergies No Known Allergies Allergy (Verified 07/05/19 00:48) Home Medications: Omeprazole Magnesium [Prilosec Otc] 20 mg PO DAILY 07/05/19 - Past Medical/Surgical History Diabetic: No -: ADD/ADHD -: KIDNEY STONES -: GERD -: KIDNEY STONES REMOVED - Family History Father -: Heart disease - Social History Smoking Status: Never smoker Alcohol use: No CD- Drugs: No Caffeine use: Yes Review of Systems Other: Except as documented, all other systems reviewed and negative. Physical Examination - Physical Exam General: Alert, In no apparent distress, Oriented x3, Obese HEENT: Normocephalic, Mucous membr. moist/pink, Sclerae nonicteric Neck: Supple, JVD not distended Respiratory: Clear to auscultation bilaterally, Normal air movement Cardiovascular: No edema, Regular rate/rhythm, Normal S1 S2 Capillary refill: <2 Seconds Gastrointestinal: Normal bowel sounds, Soft and benign, Non-distended, No tenderness Musculoskeletal: No swelling, No erythema Integumentary: No rashes, No tenderness/swelling Neurological: Normal speech, Normal strength at 5/5 x4 extr - Studies Laboratory Data (last 24 hrs) 07/04/19 17:16: WBC 19.6 H, Hgb 14.2, Hct 42.0, Plt Count 309 07/04/19 17:16: Sodium 137, Potassium 3.5, BUN 11, Creatinine 1.15, Glucose 94, Total Bilirubin 2.1 H, AST 31, ALT 33, Alkaline Phosphatase 75, Lipase 96 Assessment and Plan - Problems (Diagnosis) (1) Sepsis Current Visit: Yes Status: Acute (2) Viral pneumonia Current Visit: Yes Status: Acute (3) GERD (gastroesophageal reflux disease) Current Visit: Yes Status: Acute - Plan Place patient under observation. Sepsis protocol initiated. IV hydration IV Zosyn. Droplet isolation. UA is pending to be followed Follow blood cultures. IV Protonix. Monitor CBC. Follow Covid 19 result - Advance Directives Does patient have a Living Will: No Does patient have a Durable POA for Healthcare: No
[2019-07-04 22:37] LABS: Blood Morphology Comment NOT SEEN (NOT SEEN); Platelet Estimate ADEQ; Toxic Granulation PRESENT
[2019-07-04 22:37] LABS: Urine Blood NEGATIVE (NEG); Urine Glucose NEGATIVE (NEG); Urine Protein 2+ (NEG); Urine Specific Gravity 1.025 (1.005-1.030)
[2019-07-04 23:32] LABS: Urine Bacteria 20-50 /HPF (NONE SEEN); Urine Culture Reflex Order NOT NEEDED; Urine Mucus 2+ /HPF (NONE SEEN); Urine RBC <5 /HPF (NONE SEEN)
[2019-07-05] MEDS: NA CHLORIDE 0.9% 1,000 ML IV SCH ×3 (00:50→23:34)
[2019-07-05] MEDS ORDERED: ZOLPIDEM TARTRATE 5 MG TABLET PO PRN (00:50)
[2019-07-05] MEDS ORDERED: SODIUM CHLORIDE 0.9% 10ML INJ IV PRN (00:50)
[2019-07-05] MEDS ORDERED: VANCOMYCIN 1.25 GM in NA CHLORIDE 0.9% 250 ML IVPB SCH (00:50)
[2019-07-05] MEDS: PANTOPRAZOLE 40 MG INJ IVP SCH ×2 (01:25→08:11)
[2019-07-05] MEDS ORDERED: VANCOMYCIN 500 MG/VIAL ONE (01:32)
[2019-07-05] MEDS ORDERED: VANCOMYCIN 1 GM/VIAL ONE ×2 (01:33→04:58)
[2019-07-05] MEDS ORDERED: NA CHLORIDE 0.9% 250 ML ONE (01:33)
[2019-07-05 02:07] VITALS: BMI 37.7
[2019-07-05] MEDS: FENTANYL CITR 100 MCG/2 ML IV PRN ×5 (02:40→21:29)
[2019-07-05] MEDS ORDERED: VANCOMYCIN 2 GM in NA CHLORIDE 0.9% 500 ML IVPB ONE (03:00)
[2019-07-05] MEDS: ONDANSETRON 4 MG/2 ML VIAL IV PRN ×4 (03:15→21:29)
[2019-07-05] MEDS ORDERED: NA CHLORIDE 0.9% 500 ML ONE (04:58)
[2019-07-05 05:19] LABS: Absolute Lymphocytes (CBC) 0.6 K/uL (0.7-4.9); Basophils % 0.1 % (0-1.3); Hematocrit 40.5 % (39.6-49.0); Lymphocytes % 2.9 % (15.3-44.8); MPV 8.3 fL (7.6-11.3); RBC Red Blood Cell Count 4.62 M/uL (4.33-5.43)
[2019-07-05 05:35] LABS: BUN Blood Urea Nitrogen 13 mg/dL (7-18); Bicarbonate 23 mmol/L (21-32); Glucose Level 88 mg/dL (74-106); Magnesium 1.7 mg/dL (1.8-2.4); Phosphorus 1.5 mg/dL (2.5-4.9); Potassium 3.9 mmol/L (3.5-5.1); Sodium Level 138 mmol/L (136-145)
[2019-07-05] MEDS: ENOXAPARIN 40 MG/0.4 ML SQ SCH (08:11)
[2019-07-05] MEDS ORDERED: POTASSIUM PHOS IN 0.9 % NACL 15 MMOL/250 ML BAG IV ONE (08:29)
[2019-07-05] MEDS ORDERED: MAGNESIUM SULFATE 1 gm IVPB 1 GM/100 ML BAG IV ONE (08:29)
[2019-07-05] MEDS ORDERED: CEFEPIME/SWI 1gm 10 ML IV SCH (09:00)
[2019-07-05] MEDS ORDERED: CEFEPIME 1 GM/VIAL IV SCH (09:00)
[2019-07-05] MEDS: ACETAMINOPHEN 500 MG TAB PO PRN ×3 (12:48→23:33)
[2019-07-05] MEDS: AZITHROMYCIN IV 500 MG in NA CHLORIDE 0.9% 250 ML IVPB SCH (14:26)
[2019-07-05] MEDS: ASCORBIC ACID 500 MG TABLET PO SCH ×2 (14:26→21:29)
[2019-07-05] MEDS: ZINC SULFATE 220 MG CAP PO SCH (14:26)
[2019-07-05] MEDS: METHYLPREDNISOLONE 40 MG INJ IV SCH (14:26)
--- NOTE | 2019-07-05 15:45 | PN ---
Date of Progress Note: 07/05/2019 Patient's visit was conducted via telemedicine based on the current COVID-19 pandemic and current CDC state and local guidelines and [facility] guidelines for social visiting and self isolation of at risk persons. Patient was identified as having the need for telehealth service and was offered telemedicine services. The risks, benefits, and alternatives through this virtual video visit were explained to the patient and the patient consented to this modality of care. Visit was carried on in a secure line. All parties in the room were identified and approved by the patient prior to the consult. No technical issues were experienced. Level of care equivalent to in-person care was achieved. Patient location is in the [place], [place]. Provider location is also in [place], [place]. Visit type is secured interactive real-time video. Subjective: Patient overall states that his pain has moved down from his chest into his ribs and upper abdomen. He does report some history of hiatal hernia and GERD. He is on PPI. He has had an EGD by Dr. Groves, had some duodenitis. Patient does report some minimal cough and some shortness of breath, currently on room air. Medications: List reviewed. Physical Examination: Vital Signs: T-max 101.1, heart rate 90, blood pressure 144/68, respirations 14, O2 92% on room air. Patient was seen virtually. Physical examination was completed with recent assistance from the bedside RN. The assessment and plan are also based on chart review, history of illness and physical exam findings gathered during this encounter. Every effort has been made to make this encounter comprehensive to the best of our abilities. Patient will be re- evaluated in the next 24 hours. Management will be updated. General: Patient does not appear to be ill. He is obese. BMI of 37. Respiratory: no increased work of breathing. No visual use of accessory muscles. Gastrointestinal: non distended Neuro: Appears nonfocal. Speech is normal. Skin: No rash. Laboratory Data: WBC 19.3, H and H 13.8 and 40.5, platelets 280, neutrophils 95%. Sodium 138, potassium 3.9, chloride 107, CO2 of 23, BUN 13, creatinine 0.92, glucose 88, calcium 8.5, phosphorus 1.5, magnesium 1.7. [facility] screen is negative. COVID screening sent out of the [facility] is currently pending, was sent out on 07/03/2019. Blood cultures are pending. Urine culture also pending. Assessment And Plan: A 24-year-old male with: 1. Sepsis likely due to viral pneumonia. 2. Viral pneumonia. Patient under investigation for possible coronavirus disease 2018. Testing has been sent down to the Health Department, currently pending at this time. We will continue with droplet precautions. Patient is on IV antibiotics. He received azithromycin. We will consult ID. 3. Gastroesophageal reflux disease, history of hiatal hernia. We will continue with PPI. Currently, patient is on room air. We will continue to monitor for need for supplemental oxygen. Patient's white blood cell count still very much elevated at 19.3, slightly diminished from yesterday. We will update the patient regarding COVID results. CT scan of the abdomen showed no urinary tract stones or obstructive uropathy. No other abnormalities seen per report. LAUREANO Voice ID: [id number] Report ID: [id number] ALYCE
[2019-07-05] MEDS ORDERED: METHYLPREDNISOLONE 40 MG INJ IV SCH (17:00)
[2019-07-05] MEDS: VANCOMYCIN 2 GM in NA CHLORIDE 0.9% 500 ML IVPB SCH (17:16)
[2019-07-05] MEDS ORDERED: ASCORBIC ACID 500 MG TABLET PO SCH (21:00)
[2019-07-06] MEDS: METHYLPREDNISOLONE 40 MG INJ IV SCH ×3 (01:00→17:25)
[2019-07-06] MEDS: FENTANYL CITR 100 MCG/2 ML IV PRN ×5 (01:28→21:22)
[2019-07-06] MEDS: VANCOMYCIN 2 GM in NA CHLORIDE 0.9% 500 ML IVPB SCH (03:18)
[2019-07-06] MEDS: ACETAMINOPHEN 500 MG TAB PO PRN ×3 (04:18→21:22)
[2019-07-06] MEDS: NA CHLORIDE 0.9% 1,000 ML IV SCH ×2 (06:50→21:27)
[2019-07-06] MEDS: ONDANSETRON 4 MG/2 ML VIAL IV PRN (08:38)
[2019-07-06] MEDS: ASCORBIC ACID 500 MG TABLET PO SCH ×2 (08:38→21:22)
[2019-07-06] MEDS: ENOXAPARIN 40 MG/0.4 ML SQ SCH (08:38)
[2019-07-06] MEDS: ZINC SULFATE 220 MG CAP PO SCH (08:38)
[2019-07-06] MEDS: AZITHROMYCIN IV 500 MG in NA CHLORIDE 0.9% 250 ML IVPB SCH (09:00)
[2019-07-06] MEDS: PANTOPRAZOLE 40 MG INJ IVP SCH ×2 (09:00→21:25)
[2019-07-06 09:27] LABS: BUN Blood Urea Nitrogen 11 mg/dL (7-18); Bicarbonate 25 mmol/L (21-32); Glucose Level 111 mg/dL (74-106); Magnesium 2.1 mg/dL (1.8-2.4); Phosphorus 1.8 mg/dL (2.5-4.9); Potassium 3.7 mmol/L (3.5-5.1); Sodium Level 140 mmol/L (136-145)
[2019-07-06 09:32] LABS: Absolute Lymphocytes (CBC) 0.5 K/uL (0.7-4.9); Basophils % 0.2 % (0-1.3); Hematocrit 43.5 % (39.6-49.0); Lymphocytes % 2.6 % (15.3-44.8); MPV 8.4 fL (7.6-11.3); RBC Red Blood Cell Count 4.88 M/uL (4.33-5.43)
[2019-07-06] MEDS ORDERED: POTASSIUM PHOS IN 0.9 % NACL 15 MMOL/250 ML BAG IV ONE (09:44)
[2019-07-06] MEDS ORDERED: CEFEPIME 2 GM VIAL IV SCH (10:00)
[2019-07-06 10:30] LABS: Blood Morphology Comment NOT SEEN (NOT SEEN); Platelet Estimate ADEQ
[2019-07-06] MEDS: CEFEPIME/SWI 2gm 2 GM/20 ML SYR IVP SCH ×2 (11:05→21:21)
--- NOTE | 2019-07-06 12:31 | PN ---
Date of Progress Note: 07/06/2019 Subjective: Patient seen and examined. Chart reviewed and case discussed with RN. Patient is still having some low-grade temperatures. Culture results were negative. Still complaining of some chest tightness. Medications: Reviewed. Physical Examination: Vital signs: T-max 100, T-current is 98, heart rate 61, blood pressure 138/72, respirations 18, O2 of 97% on room air. General: Awake, alert, oriented x3, in some mild distress. Obese male. BMI 37. CV: S1, S2. Regular rate and rhythm. Peripheral pulses present respiratory. Moving air well bilaterally. No wheezing or stridor. Gastrointestinal: Abdomen is soft. Mild tenderness to palpation. No rebound or guarding. Positive bowel sounds. Extremities: No clubbing, cyanosis, or edema. Neurologic: Nonfocal. Laboratory Data: Sodium 140, potassium 3.7, chloride 107, CO2 of 25, BUN 11, creatinine 0.9, glucose 111, calcium 8.6, phosphorus 1.8, magnesium 2.1. WBC count 21.1, H and H 14.4 and 43.5, platelets 347, neutrophils 95%. [place] screen is negative. Blood culture show no growth to date. Urine culture, no growth. Assessment: A 24-year-old male with; 1. Sepsis likely due to viral pneumonia. WBC count still elevated. Patient was placed on steroids yesterday. COVID screen was negative. 2. Viral pneumonia: COVID negative. Patient is now being able to be weaned off oxygen, was on 2 L of nasal cannula yesterday. Currently on broad-spectrum IV antibiotics and azithromycin. Appreciate ID input. 3. Gastroesophageal reflux disease with history of hiatal hernia. Continue with PPI. Patient still reporting some abdominal pain and chest tightness with difficulty breathing. CT scan was negative. Patient may be having gastroesophageal symptoms, may need possible GI evaluation. Plan: We will continue IV fluids. Follow up on cultures. ID recommendations. We will switch PPI to b.i.d. ADDENDUM: Spoke with GI doctor Germain. She agrees with PPI b.i.d. and outpatient follow up. Spoke with infectious disease doctor Kenny. Despite patient's negative COVID test results patient is still having fevers complains of shortness of breath and is now back on oxygen 2 L saturating around 91%. Patient had been moved out of isolation room due to negative test result. Will place back in negative pressure room and continue droplet precautions out of abundance of caution and possibility of false negative test results. If not improving, may need to repeat COVID test results. LAUREANO Voice ID: [id number] Report ID: [id number] MTDD
[2019-07-06] MEDS ORDERED: HYDROXYCHLOROQUINE 200MG TAB PO SCH (21:00)
[2019-07-06] MEDS: DOXYCYCLINE 100 MG in NA CHLORIDE 0.9% 100 ML IVPB SCH (21:23)
[2019-07-07] MEDS: FENTANYL CITR 100 MCG/2 ML IV PRN ×3 (01:21→09:45)
[2019-07-07] MEDS: METHYLPREDNISOLONE 40 MG INJ IV SCH ×2 (01:30→08:23)
[2019-07-07] MEDS: NA CHLORIDE 0.9% 1,000 ML IV SCH ×3 (02:50→22:40)
[2019-07-07 06:49] LABS: Absolute Lymphocytes (CBC) 0.8 K/uL (0.7-4.9); Basophils % 0.1 % (0-1.3); Hematocrit 39.5 % (39.6-49.0); Lymphocytes % 3.6 % (15.3-44.8); MPV 8.3 fL (7.6-11.3); RBC Red Blood Cell Count 4.48 M/uL (4.33-5.43)
[2019-07-07 07:03] LABS: ALT/SGPT 26 U/L (12-78); AST/SGOT 29 U/L (15-37); Albumin 2.3 g/dL (3.4-5.0); Alkaline Phosphatase 57 U/L (45-117); BUN Blood Urea Nitrogen 16 mg/dL (7-18); Bicarbonate 25 mmol/L (21-32); Bilirubin Total 0.4 mg/dL (0.2-1.0); Glucose Level 111 mg/dL (74-106); Phosphorus 2.7 mg/dL (2.5-4.9); Potassium 4.3 mmol/L (3.5-5.1); Protein, Total 6.7 g/dL (6.4-8.2); Sodium Level 142 mmol/L (136-145)
[2019-07-07] MEDS: DOXYCYCLINE 100 MG in NA CHLORIDE 0.9% 100 ML IVPB SCH ×2 (08:22→20:07)
[2019-07-07] MEDS: ENOXAPARIN 40 MG/0.4 ML SQ SCH (08:22)
[2019-07-07] MEDS: ASCORBIC ACID 500 MG TABLET PO SCH ×2 (08:23→20:07)
[2019-07-07] MEDS: PANTOPRAZOLE 40 MG INJ IVP SCH ×2 (08:23→20:07)
[2019-07-07] MEDS: ZINC SULFATE 220 MG CAP PO SCH (08:23)
[2019-07-07] MEDS: CEFEPIME/SWI 2gm 2 GM/20 ML SYR IVP SCH ×2 (08:24→20:07)
[2019-07-07] MEDS: AZITHROMYCIN IV 500 MG in NA CHLORIDE 0.9% 250 ML IVPB SCH (08:26)
--- NOTE | 2019-07-07 12:20 | RAD REPORT ---
EXAM DESCRIPTION: RAD - Chest Single View - 07/07/2019 6:40 am CLINICAL HISTORY: b/l pna Chest pain. COMPARISON: Chest Single View dated 07/03/2019; Abdomen 1 View (KUB) dated 06/29/2015; Abdomen 1 View (KUB) dated 06/10/2015; ABDOMEN 1 VIEW KUB dated 02/13/2013 FINDINGS: Portable technique limits examination quality. Mild interstitial lung opacities are present in the left lung which may represent interstitial pneumo hossein. The heart is normal in size. No displaced fractures.
[2019-07-07] MEDS: HYDROCODONE/APAP 5/325 MG TAB PO PRN ×2 (13:49→20:08)
--- NOTE | 2019-07-07 15:16 | PN ---
Date of Progress Note: 07/07/2019 Patient's visit was conducted via telemedicine based on the current COVID-19 pandemic and current CDC state and local guidelines and CHI guidelines for social visiting and self isolation of at risk persons. Patient was identified as having the need for telehealth service and was offered telemedicine services. The risks, benefits, and alternatives through this virtual video visit were explained to the patient and the patient consented to this modality of care. Visit was carried on in a secure line. All parties in the room were identified and approved by the patient prior to the consult. No technical issues were experienced. Level of care equivalent to in-person care was achieved. Subjective: Patient states that he is doing significantly better. Still requiring oxygen, but states his pain is better. He was encouraged to ambulate within the room. Case was discussed with Dr. Cox, Infectious Disease. Despite patient's negative COVID result, would still need to keep in isolation due to patient's clinical symptoms matching COVID-19. Patient now has been afebrile for 24 hours. Last temperature was low grade 100 degrees temperature at 4 a.m. on the . Medications: List reviewed. Physical Examination: Vital Signs: Temperature 98.4, heart rate 85, blood pressure 150/81, respirations 18, O2 of 92% on 2 L via nasal cannula. General: Does not appear to be in any acute distress, obese. Respiratory: No increased work of breathing. No use of accessory muscles visualize. Neuro: Moves all 4 extremities. Speech is normal. Laboratory Data: Sodium 142, potassium 4.3, chloride 110, CO2 of 25, BUN 16, creatinine 0.74, glucose 111, calcium 8, phosphorus 2.7. WBC 21.3, H and H 12.9 and 39.5, platelets 406, neutrophils 93%. Imaging: Chest x-ray, no official report, shows increased interstitial markings. Assessment And Plan: A 24-year-old male with: 1. Sepsis likely secondary to viral pneumonia. White count still elevated, likely due to steroids. Procalcitonin was mildly elevated at 0.51. Cultures are negative to date. 2. Pneumonia. Patient under investigation for coronavirus disease 2019. Health department testing was negative; however, due to clinical suspicion, we will continue with droplet precautions and isolation. Continue azithromycin due to hospital policy. Patient unable to receive hydroxychloroquine due to negative coronavirus disease result. Patient's antibiotics were adjusted. He is started on doxycycline as well. Appreciate ID consult. 3. Gastroesophageal reflux disease, history of hiatal hernia. Continue PPI. 4. Hypoxia. Patient is still requiring supplemental oxygen 2 L. We will try to wean off as tolerated. Cultures are negative. Patient has been largely in bed not moving around. Will Dc fentanyl and switched to [place] encourage ambulation check room air saturation. Encourage proning for at least 4-6 hr per day. Incentive spirometry Plan: Likely discharge in the next 24 hours. If continues to improve, then off oxygen. We will monitor for final chest x-ray report. /UMBERTO Voice ID: [id number] Report ID: [id number] ALYCE
[2019-07-08] MEDS: HYDROCODONE/APAP 5/325 MG TAB PO PRN ×3 (03:39→20:10)
[2019-07-08 04:12] LABS: Absolute Lymphocytes (CBC) 1.3 K/uL (0.7-4.9); Basophils % 0.2 % (0-1.3); Hematocrit 38.4 % (39.6-49.0); Lymphocytes % 8.3 % (15.3-44.8); MPV 8.1 fL (7.6-11.3); RBC Red Blood Cell Count 4.35 M/uL (4.33-5.43)
[2019-07-08 04:32] LABS: ALT/SGPT 28 U/L (12-78); AST/SGOT 30 U/L (15-37); Albumin 2.2 g/dL (3.4-5.0); Alkaline Phosphatase 54 U/L (45-117); BUN Blood Urea Nitrogen 15 mg/dL (7-18); Bicarbonate 25 mmol/L (21-32); Bilirubin Total 0.6 mg/dL (0.2-1.0); Glucose Level 90 mg/dL (74-106); Potassium 4.1 mmol/L (3.5-5.1); Protein, Total 6.4 g/dL (6.4-8.2); Sodium Level 140 mmol/L (136-145)
[2019-07-08] MEDS: NA CHLORIDE 0.9% 1,000 ML IV SCH (10:50)
[2019-07-08] MEDS: ENOXAPARIN 40 MG/0.4 ML SQ SCH (10:50)
[2019-07-08] MEDS: CEFEPIME/SWI 2gm 2 GM/20 ML SYR IVP SCH (10:51)
[2019-07-08] MEDS: AZITHROMYCIN IV 500 MG in NA CHLORIDE 0.9% 250 ML IVPB SCH (10:51)
[2019-07-08] MEDS: ZINC SULFATE 220 MG CAP PO SCH (10:51)
[2019-07-08] MEDS: ASCORBIC ACID 500 MG TABLET PO SCH ×2 (10:52→20:10)
[2019-07-08] MEDS: PANTOPRAZOLE 40 MG INJ IVP SCH ×2 (10:52→20:09)
[2019-07-08] MEDS: DOXYCYCLINE 100 MG in NA CHLORIDE 0.9% 100 ML IVPB SCH (10:55)
[2019-07-08] MEDS: ONDANSETRON 4 MG/2 ML VIAL IV PRN ×2 (12:01→17:00)
--- NOTE | 2019-07-08 15:47 | RAD REPORT ---
EXAM DESCRIPTION: CT - [facility] - 07/08/2019 2:11 pm CLINICAL HISTORY: Hypoxemia, initial COVID-19 test negative, second test pending COMPARISON: Chest Single View dated 07/07/2019 TECHNIQUE: Axial 5 mm thick images of the chest were obtained without IV contrast. All CT scans are performed using dose optimization technique as appropriate and may include automated exposure control or mA/KV adjustment according to patient size. FINDINGS: No lung parenchymal mass lesions seen. Interstitial markings are not outside of normal ran ge for CT imaging. The patient does have ground-glass opacification throughout much of the left upper lobe. This is both centrally and peripherally distributed. Ground-glass opacification is present in the inferior aspect of the left lower lobe. Right upper lobe and right middle lobe ground-glass opaci ties are present also seen in the central and peripheral distribution pattern. No dense consolidation . No pleural thickening or pleural effusion. No pneumothorax. Nonspecific mediastinal lymph nodes are present. No bulky mediastinal or hilar lymphadenopathy. Pretr acheal lymph nodes are present up to 17 mm in long axis dimension. Similar subcarinal lymph nodes are present. No gross aortic or pulmonary artery finding suspected. No cardiomegaly or pericardial effusion. Asse ssment is limited in the absence of IV contrast. No chest wall mass or abnormal axillary lymphadenopathy. IMPRESSION: Bilateral multi lobe ground-glass opacification present most pronounced in the left uppe r lobe. No dense consolidation, mass or pleural effusion. Small nonspecific mediastinal lymph nodes. Pattern is consistent with viral pneumonia. The bilateral ground-glass opacification pattern is not a classic COVID-19 peripheral distribution but should be a consideration.
[2019-07-08] MEDS: ACETAMINOPHEN 500 MG TAB PO PRN (17:06)
--- NOTE | 2019-07-08 18:55 | PN ---
Date of Progress Note: 07/08/2019 Subjective: Patient still somewhat hypoxic 88% on room air, spike the low-grade fever 100.7 this morning, still complaining of some difficulty with breathing. Medications: List reviewed. Physical Examination: Vital Signs: Temperature 100.7, heart rate 93, blood pressure 142/76, respirations 20, O2 88% on room air. General: Ill-appearing male seems in mild distress. Obese. BMI 37. Respiratory: Does not seemed to be using any accessory muscles. Does not appear to be in any respiratory distress. Neurologic: Nonfocal moves all 4 extremities. Speech is normal. Laboratory Data: WBC 15.3, H and H 12.8 and 38.4, platelets 377, neutrophils 90%. Blood cultures, no growth to date. Repeat COVID testing is pending. Will be sent out to clinical pathology lab as this is repeat testing and may not be back for 5-7 days. Assessment And Plan: A 24-year-old male with 1. Sepsis secondary to viral pneumonia. White count is improving. Patient cultures are negative. 2. Pneumonia, under investigation for Coronavirus disease. Initial testing was negative, however, due to clinical suspicion, we will continue isolation. Continue azithromycin. Patient is unable to receive hydroxychloroquine due to the negative Coronavirus results due to hospital policy. Antibiotics have been adjusted. Doxycycline was initiated. ID on board. Did speak with Dr. Velasquez, blade grader operator for consultation. Patient was encouraged to prone, however, he is not proning. He lays in bed for the majority of the day. He does not like to walk around. He understands that he is worsening his lung function by lying in bed all day. He needs to continue with incentive spirometry and make laps in his room and stretches torso and take deep breaths and prone for at least 4-6 hours per day. We will check a ferritin level in a.m. His lymphocytes has improved. 3. Gastroesophageal reflux disease. History of hiatal hernia. We will continue PPI. 4. Hypoxia likely secondary to pneumonia. We will continue with supplemental oxygen. Patient was seen virtually, and physical exam was completed w assistance of bedside RN. The above A&P is based on chart review, HPI, and the physical examination findings during this encounter. every effort has been made to make this encounter comprehensive to the best of our abilities. /OLYAL Voice ID: [id number] Report ID: [id number] MTDPatricia
[2019-07-09] MEDS: HYDROCODONE/APAP 5/325 MG TAB PO PRN (03:36)
[2019-07-09] MEDS: ONDANSETRON 4 MG/2 ML VIAL IV PRN ×3 (03:37→12:01)
[2019-07-09 04:36] LABS: Absolute Lymphocytes (CBC) 0.6 K/uL (0.7-4.9); Basophils % 0.1 % (0-1.3); Hematocrit 36.3 % (39.6-49.0); Lymphocytes % 4.2 % (15.3-44.8); MPV 8.1 fL (7.6-11.3); RBC Red Blood Cell Count 4.14 M/uL (4.33-5.43)
[2019-07-09 05:02] LABS: BUN Blood Urea Nitrogen 11 mg/dL (7-18); Bicarbonate 26 mmol/L (21-32); Ferritin 668.3 ng/mL (26-388); Glucose Level 81 mg/dL (74-106); Potassium 3.7 mmol/L (3.5-5.1); Sodium Level 138 mmol/L (136-145)
[2019-07-09] MEDS: ZINC SULFATE 220 MG CAP PO SCH (08:28)
[2019-07-09] MEDS: ENOXAPARIN 40 MG/0.4 ML SQ SCH (08:29)
[2019-07-09] MEDS: ASCORBIC ACID 500 MG TABLET PO SCH (08:31)
[2019-07-09] MEDS ORDERED: PANTOPRAZOLE 40MG TABLET PO SCH (09:00)
[2019-07-09] MEDS ORDERED: predniSONE 20 MG TAB PO SCH (09:00)
[2019-07-09] MEDS ORDERED: levoFLOXacin 500 MG TAB PO SCH (09:00)
[2019-07-09] MEDS ORDERED: AZITHROMYCIN 250 MG TAB PO SCH (09:00)
--- NOTE | 2019-07-09 11:01 | P.CNS ---
Date of Consult: 07/09/19 Reason for Consult: Pneumonia and hypoxemia Chief Complaint: Pneumonia History of Present Illness: Patient is 24 years of age is been about sick for about 2 weeks started complaining of chest tightness chest discomfort some fever went to the ER twice and was admitted here with fever hypoxemia interstitial changes on his chest x- ray CT scan shows bilateral ground-glass changes patient's dorsey virus have been repeatedly negative he is feeling better today Allergies No Known Allergies Allergy (Verified 07/05/19 00:48) Home Medications: Omeprazole Magnesium [Prilosec Otc] 20 mg PO DAILY 07/05/19 - Past Medical/Surgical History Diabetic: No -: ADD/ADHD -: KIDNEY STONES -: GERD -: KIDNEY STONES REMOVED -: fredrick -: tonsillectomy - Family History Father Medical History: Heart disease - Social History Smoking Status: Current some day smoker Alcohol use: No CD- Drugs: No Caffeine use: Yes Place of Residence: Home Review of Systems Unremarkable Physical Examination Temp Pulse Resp BP Pulse Ox 98.5 F 109 H 18 120/74 94 07/09/19 08:00 07/09/19 08:00 07/09/19 08:00 07/09/19 08:00 07/09/19 08:00 General: Alert, In no apparent distress, Oriented x3 HEENT: Atraumatic Neck: Supple Respiratory: Clear to auscultation bilaterally Cardiovascular: No edema, Regular rate/rhythm Gastrointestinal: Normal bowel sounds, Soft and benign - Problems (1) Pneumonia Current Visit: Yes Status: Acute Plan: Patient is 24 years of age admitted with bilateral ground-glass changes pneumonia patient's white count is elevated which is declining patient has borderline temperature he is feeling better CT scan are reviewed patient's cultures are negative chest exam is unremarkable he has never had any prior cardiopulmonary problem patient has gastroesophageal reflux I recommend discharging him on low-dose prednisone 10 mg twice a day for 7 days in addition to levofloxacin and follow up with me for a telephone visit next week patient's room-air saturation is now normal Qualifiers: Pneumonia type: due to unspecified organism Laterality: bilateral (2) Viral pneumonia Current Visit: Yes Status: Acute
[2019-07-09] MEDS ORDERED: POTASSIUM CL SA 10 MEQ TAB PO ONE (11:03)
[2019-07-09] MEDS: ACETAMINOPHEN 500 MG TAB PO PRN (11:56)
--- NOTE | 2019-07-09 15:09 | P.DS ---
Admission Date: 07/05/19 Discharge Date: 07/09/19 Primary Care Provider: none Disposition: ROUTINE DISCHARGE Discharge Condition: GOOD Reason for Admission: Pneumonia Consultations: Pulmonary-Dr. Velasquez ID-Dr. Cox Procedures: CT scan: FINDINGS: No lung parenchymal mass lesions seen. Interstitial markings are not outside of normal range for CT imaging. The patient does have ground-glass opacification throughout much of the left upper lobe. This is both centrally and peripherally distributed. Ground-glass opacification is present in the inferior aspect of the left lower lobe. Right upper lobe and right middle lobe ground- glass opacities are present also seen in the central and peripheral distribution pattern. No dense consolidation. No pleural thickening or pleural effusion. No pneumothorax. Nonspecific mediastinal lymph nodes are present. No bulky mediastinal or hilar lymphadenopathy. Pretracheal lymph nodes are present up to 17 mm in long axis dimension. Similar subcarinal lymph nodes are present. No gross aortic or pulmonary artery finding suspected. No cardiomegaly or pericardial effusion. Assessment is limited in the absence of IV contrast. No chest wall mass or abnormal axillary lymphadenopathy. IMPRESSION: Bilateral multi lobe ground-glass opacification present most pronounced in the left upper lobe. No dense consolidation, mass or pleural effusion. Small nonspecific mediastinal lymph nodes. Pattern is consistent with viral pneumonia. The bilateral ground-glass opacification pattern is not a classic COVID-19 peripheral distribution but should be a consideration. Medical Problem List: Sepsis secondary to bilateral pneumonia likely viral GERD with hiatal hernia Hypoxia related to above Brief History of Present Illness: 24-year-old male presented to emergency room with abdominal pain. CT scan of the abdomen revealed ground glass opacities for possible COVID infection. He was admitted for further evaluation. Hospital Course: Patient presented with abdominal pain. There was some suspicion for COVID infe ction as CT scan showed the possibility of opacities to the lungs. Patient was tested twice for COVID. Both were negative. Patient also seen by pulmonology. Patient had some hypoxia during the course of his stay. This improved. Patient was also seen by infectious disease. At discharge he is without significant shortness of breath. Room-air saturations within normal range. At discharge patient will continue to finish Levaquin 500 mg daily for the next 5 days. Patient will also continue with prednisone 10 mg 1 pill twice daily for 5 days then 1 pill once daily for 5 days. Patient will continue with Mucinex twice daily as needed for congestion. Recommend follow up with pulmonology in 1-2 weeks to follow up this hospitalization. Recommend to recheck chest x-ray in 2- 4 weeks to monitor resolution. Patient with underlying GERD. At discharge he may continue with Protonix 40 mg once daily. Vital Signs/Physical Exam: Temp Pulse Resp BP Pulse Ox 100.4 F 90 16 144/83 H 94 07/09/19 12:00 07/09/19 12:00 07/09/19 12:00 07/09/19 12:00 07/09/19 12:00 General: Alert, In no apparent distress, Oriented x3, Cooperative HEENT: Atraumatic Neck: Supple Respiratory: Clear to auscultation bilaterally, Normal air movement Cardiovascular: Normal pulses, Regular rate/rhythm Gastrointestinal: Normal bowel sounds, Soft and benign, Non-distended, No tenderness, No masses, No rebound, No guarding Integumentary: No tenderness/swelling, No erythema, No warmth, No cyanosis Neurological: Normal speech, Normal strength at 5/5 x4 extr, Normal tone, Normal affect Laboratory Data at Discharge: WBC 15.4 K/uL (4.3-10.9) H 07/09/19 03:30 Hgb 12.3 g/dL (13.6-17.9) L 07/09/19 03:30 Hct 36.3 % (39.6-49.0) L 07/09/19 03:30 Plt Count 391 K/uL (152-406) 07/09/19 03:30 Sodium 138 mmol/L (136-145) 07/09/19 03:30 Potassium 3.7 mmol/L (3.5-5.1) 07/09/19 03:30 BUN 11 mg/dL (7-18) 07/09/19 03:30 Creatinine 0.74 mg/dL (0.55-1.3) 07/09/19 03:30 Glucose 81 mg/dL (74-106) 07/09/19 03:30 Phosphorus 2.7 mg/dL (2.5-4.9) 07/07/19 05:40 Magnesium 2.1 mg/dL (1.8-2.4) 07/06/19 08:43 Total Bilirubin 0.6 mg/dL (0.2-1.0) 07/08/19 03:26 AST 30 U/L (15-37) 07/08/19 03:26 ALT 28 U/L (12-78) 07/08/19 03:26 Alkaline Phosphatase 54 U/L (45-117) 07/08/19 03:26 Lipase 96 U/L (73-393) 07/04/19 17:16 Home Medications: Albuterol Inhaler [Ventolin Inhaler*] 2 puff IH Q6H PRN #1 hfa.aer.ad 07/09/19 Guaifenesin [Mucinex] 600 mg PO BID PRN #15 tab.er.12h 07/09/19 Pantoprazole [Protonix Tab*] 40 mg PO DAILY #30 tab 07/09/19 levoFLOXacin [Levaquin*] 500 mg PO DAILY #5 tab 07/09/19 predniSONE [Prednisone*] 20 mg PO SEECOM #15 tab 07/09/19 New Medications: levoFLOXacin [Levaquin*] 500 mg PO DAILY #5 tab Guaifenesin [Mucinex] 600 mg PO BID PRN #15 tab.er.12h PRN Reason: Cough predniSONE [Prednisone*] 20 mg PO SEECOM #15 tab Pantoprazole [Protonix Tab*] 40 mg PO DAILY #30 tab Albuterol Inhaler [Ventolin Inhaler*] 2 puff IH Q6H PRN #1 hfa.aer.ad PRN Reason: Shortness Of Breath Patient Discharge Instructions: 1. Follow up with with PCP to establish care follow this hospitalization. 2. Patient presented with abdominal pain. There was some suspicion for COVID infection as CT scan showed the possibility of opacities to the lungs. Patient was tested twice for COVID. Both were negative. Patient also seen by pulmonology. Patient had some hypoxia during the course of his stay. This improved. Patient was also seen by infectious disease. At discharge he is without significant shortness of breath. Room-air saturations within normal range. At discharge patient will continue to finish Levaquin 500 mg daily for the next 5 days. Patient will also continue with prednisone 10 mg 1 pill twice daily for 5 days then 1 pill once daily for 5 days. Patient will continue with Mucinex twice daily as needed for congestion. Recommend follow up with pulmonology in 1-2 weeks to follow up this h ospitalization. Recommend to recheck chest x-ray in 2-4 weeks to monitor resolution. 3. Patient with underlying GERD. At discharge he may continue with Protonix 40 mg once daily. Diet: AHA Activity: Ad nicolás Time spent managing pt's care (in minutes): 55
[2019-07-09 16:26] VITALS: BP 141/74; TEMP 97.3
[2019-07-09 16:44] VITALS: O2SAT 96
--- NOTE | 2019-07-09 18:06 | CON ---
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 Denies any headache, nausea, vomiting, but having cough, runny nose, and chest pain especially when he coughs, also running low-grade fevers at this time. Patient was admitted initiall y for a left lower lobe pneumonia and leukocytosis. WBC max of 21,300. Today WBCs down to 15,400. Patient is currently being treated with antibiotic, Levaquin. We will also give him Zithromax. Chichi ent denies any other complaints at this time. Past Medical History: Reflux for which he is taking Prilosec. Social History: Occasional tobacco smoker. No alcohol. Allergies: NO KNOWN DRUG ALLERGIES. Current Medication: Levaquin. See MAR for other medications. Review of Systems: A 10-point review was performed. Physical Examination: General: This is a 24-year-old male, lying in bed, not in any acute cardiopulmonary distress. Vital Signs: Temperature T-max of 100.4, pulse 90, respirations 16, blood pressure 144/83. HEENT: Unremarkable. Poor dental hygiene. Neck: Supple. Lungs: Fine crackles bilaterally. Heart: S1, S2. Regular. Abdomen: Soft, nontender. Bowel sounds present. Extremities: No edema. Laboratory Data: Shows WBC 15,400, hemoglobin 12.3, platelets are 391. Chemistry shows sodium 138, potassium 3.7, chloride 104, bicarb 26, BUN 11, creatinine 0.7, glucose 81. Micro data: Blood cultur es are negative for 24 hour COVID-19 test, negative PCR. Urine culture is negative. Chest x-ray antoine ws left lower lobe infiltrate. When I evaluated the x-ray, does not show significant pneumonia. Assessment And Plan: Possible left lower lobe infiltrate secondary to pneumonia in a 24-year-old [facility] healthy male, occasional smoker, and morbidly obese. No other risk factors. We will continue antibiotic, can be switched to oral once patient's fever and leukocytosis subside. Pending culture r esults, we will continue empiric antibiotic regimen with Levaquin. Total course of 2 weeks and follo w patient closely. NF/MODL Voice ID: [id number] Report ID: [id number]
== END 2019-07-09 17:19 | disposition home or self-care (01) | DRG 871 ==
LOC: ER 15:38 → ERHOLD 22:29 → 4TH 07-05 00:13 → OBSVTOIN 07-05 15:45 → 4TH 07-05 20:13
PROVIDERS: ADMIT Internal Medicine; ATTEND Family Medicine
PROC: 8E0ZXY6 Isolation (ICD-10-PCS; principal; 2019-07-05)
DX: A41.9 Sepsis, unspecified organism (principal); J12.9 Viral pneumonia, unspecified; K21.9 Gastro-esophageal reflux disease without esophagitis; Z20.828 Contact with and (suspected) exposure to other viral communicable diseases; Z79.899 Other long term (current) drug therapy; Z90.49 Acquired absence of other specified parts of digestive tract; F17.210 Nicotine dependence, cigarettes, uncomplicated; E66.01 Morbid (severe) obesity due to excess calories; Z68.37 Body mass index [BMI] 37.0-37.9, adult; K44.9 Diaphragmatic hernia without obstruction or gangrene; Z79.890 Hormone replacement therapy; T38.0X5A Adverse effect of glucocorticoids and synthetic analogues, initial encounter
CPT/HCPCS: 36415; 71045; 71250; 74176; 76377; 80048; 80053; 80076; 80202; 81003; 81015; 82565; 82728; 83690; 83735; 84100; 84145; 85025; 86308; 87040; 87086; 87088; 94760; 96361; 96365; 96375; 99285; C9113; G0378; J0456; J0692; J1650; J2405; J2550; J2920; J3010; J3475; J7030; J7040; J7512; U0002